=== PATIENT | male | born 1960 | race Caucasian/White ===

== ENCOUNTER 2019-01-28 11:34 | Emergency (ER) | payer OTHER ==
[~2019-01-28] VITALS: Ht 177.8 cm; Wt 92.0 kg
[~2019-01-28 11:34] MED LIST: ENAL20TA PO; METF850T13 PO; SIMV20TA2 PO; TERA2CAP3 PO
[2019-01-28 11:37] VITALS: BP 166/87; PULSE 88; RESP 18; Ht 177.8 cm; Wt 92.0 kg
[2019-01-28] MEDS ORDERED: IBUPROFEN 200 MG TAB PO ONE (13:00)
--- NOTE | 2019-01-28 13:54 | ERD ---
ER Documentation Chief Complaint Chief Complaint LEFT SHOULDER PAIN S/P FALL, LANDED ON YESTERDAY. LIMITED ROM. HPI 58-year-old male presents with complaint of left shoulder pain and left hip pain status post fall. States that he he tripped yesterday while walking. States that he has some limited range of motion of his shoulder but denies any weakness or numbness. Denies any preceding dizziness, lightheadedness, chest pain, syncope. Denies hitting his head. Denies any headaches or neck pain. Denies any back pain. ROS All systems reviewed and are negative except as per history of present illness. Medications Home Meds Active Scripts Hydrocodone/Acetaminophen (Kerens 5-325 Tablet) 1 Each Tablet, 1 TAB PO Q6H PRN for PAIN, #15 TAB Prov:ROBE DESAI 01/28/19 Reported Medications Terazosin Hcl* (Terazosin Hcl*) 2 Mg Capsule, 6 MG PO PM, CAP 02/07/14 Enalapril Maleate* (Enalapril Maleate*) 20 Mg Tablet, 20 MG PO BID, TAB 02/07/14 Simvastatin (Simvastatin) 20 Mg Tablet, 20 MG PO HS, TAB 02/07/14 Metformin Hcl* (Metformin Hcl*) 850 Mg Tablet, 850 MG PO BID, TAB 02/07/14 Allergies Allergies: Coded Allergies: No Known Allergy (Unverified , 01/28/19) PMhx/Soc History of Surgery: Yes (BACK SURGERY ) Anesthesia Reaction: No Hx Neurological Disorder: No Hx Respiratory Disorders: No Hx Cardiac Disorders: Yes (HTN , HIGH CHOLESTEROL ) Hx Psychiatric Problems: No Hx Miscellaneous Medical Probl: Yes (DM ) Hx Alcohol Use: No Hx Substance Use: No Hx Tobacco Use: No FmHx Family History: No diabetes, No coronary disease, No other Physical Exam Vitals Vital Signs Date Temp Pulse Resp B/P (MAP) Pulse Ox O2 O2 Flow FiO2 Time Delivery Rate 01/28/19 97.9 88 18 166/87 98 11:37 (113) Physical Exam Const: No acute distress Head: Atraumatic Eyes: Normal Conjunctiva ENT: Normal External Ears, Nose and Mouth. Neck: Full range of motion. No meningismus. Resp: Clear to auscultation bilaterally Cardio: Regular rate and rhythm, no murmurs Abd: Soft, non tender, non distended. Normal bowel sounds Skin: No petechiae or rashes Back: No midline or flank tenderness Ext: No cyanosis, or edema Neur: Awake and alert Psych: Normal Mood and Affect Upper Extremity - bilateral: Skin: [No laceration, or evidence of external trauma] Compartments: [Soft] Motor: [Full active range of motion shoulder/elb ow/wrist/hand] Sensation: [Intact shoulder/pinky/middle finger/thumb web space] Bones: [Nontender humerus/elbow/forearm/wrist/hand] Snuffbox: [Nontender] Joints: [No effusion] Pulses/Perfusion: [2+ radial, Capillary refill < 2 seconds] Lower Extremity - bilateral: Skin: No laceration Compartments: Soft Motor: Full active range of motion hip/knee/ankle/foot Sensation: Intact to light touch FDWS/MF/LF/P surfaces. Bones: Nontender femur and pelvis bilaterally. Joints: No effusion or laxity Pulses/Perfusion: 2+ DP, Capillary refill < 2 seconds Results 24 hrs Current Medications Medications Dose Sig/Cynthia Start Time Status Last (Trade) Ordered Route PRN Stop Time Admin Dose Reason Admin Ibuprofen 400 mg ONCE ONCE 01/28/19 DC 01/28/19 (Motrin) PO 13:00 12:59 01/28/19 13:03 Procedures/MDM DIAGNOSTIC IMAGING REPORT Patient: CHARLY FORRESTER : 1960 Age: 58 Sex: M MR #: [id number] DOS: 01/28/19 1247 Ordering MD: ROBE DESAI Location: [facility] Room/Bed: PROCEDURE: XR Hip. CLINICAL INDICATION: trauma, pain TECHNIQUE: AP and frog lateral views of the left hip were performed. COMPARISON: None. FINDINGS: There is normal mineralization and alignment. No displaced fracture identified. Marginal osteophyte formation in the left hip without significant cartilage space narrowing. Left SI joint demonstrates mild hypertrophic change. Degenerative change in the visualized lower lumbar spine. Imaged sacrum is obscured by overlying bowel gas and stool. Vascular calcifications IMPRESSION: 1. No displaced fracture identified. CT may be obtained if there is persistent concern for fracture. 2. Degenerative change of the visualized lower lumbar spine, and mild left hip osteoarthritis. 3. Vascular calcifications. RPTAT: RR Physician Tuan Date Time Electronically viewed and signed by Physician Tuan on 01/28/2019 13:43 RG/ CC: ROBE DESAI [id number] DIAGNOSTIC IMAGING REPORT Patient: CHARLY FORRESTER : 1960 Age: 58 Sex: M MR #: [id number] DOS: 01/28/19 1247 Ordering MD: ROBE DESAI Location: [facility] Room/Bed: PROCEDURE: Left Shoulder series CLINICAL INDICATION: Left shoulder pain status post trauma TECHNIQUE: Two frontal and left transscapular views of the left shoulder. COMPARISON: None available FINDINGS: The osseous structures are intact with no evidence of fracture or dislocation. The acromioclavicular and coracoclavicular regions are remarkable for severe left acromioclavicular osteoarthropathy. The left lung apex is clear. The soft tissues are normal in appearance. IMPRESSION: 1. No acute fractures or dislocations. 2. Severe left acromioclavicular osteoarthropathy RPTAT: HDC .Caitlin Diane MD, MD Date Time Electronically viewed and signed by .Caitlin Diane MD, on 01/28/2019 13:27 .C/ CC: ROBE DESAI [id number] MDM: X-rays were taking of the left hip and left shoulder and all results within normal limits. Patient most likely has contusion versus strain of the shoulder. I have low suspicion for neurovascular compromise, compartment syndrome, fracture, osteomyelitis, septic joint, DVT, or other emergent condition. Patient placed in shoulder sling. Patient given Rx for pain meds. At this time, patient is stable for discharge and outpatient management. I have instructed the patient to follow-up with his/her primary care physician in 1-2 days. I have discussed with the patient the possibility of needing to see a specialist for further workup and imaging studies if symptoms persist. I have instructed the patient to promptly return to the ER for any new or worsening symptoms including but not limited to increased pain, fever, nausea, vomiting, weakness or LOC. The patient and/or family expressed understanding of and agreement with this plan. All questions were answered. Home care instructions were provided. DISCLAIMER: Inadvertent spelling and grammatical errors are likely due to EHR/dictation software use and do not reflect on the overall quality of patient care. Also, please note that the electronic time recorded on this note does not necessarily reflect the actual time of the patient encounter. Departure Diagnosis: Primary Impression: Shoulder injury Additional Impressions: Shoulder pain Hip pain Hip injury Condition: Stable GISELLEROBE Jan 28, 2019 13:54
[2019-01-28] MEDS ORDERED: HYDR-4011 PO (13:56)
== END 2019-01-28 14:28 | disposition home or self-care (01) ==
LOC: FTE 11:34
DX: S49.92XA Unspecified injury of left shoulder and upper arm, initial encounter (principal); E11.9 Type 2 diabetes mellitus without complications; I10 Essential (primary) hypertension; S79.912A Unspecified injury of left hip, initial encounter; W01.0XXA Fall on same level from slipping, tripping and stumbling without subsequent striking against object, initial encounter; Y92.9 Unspecified place or not applicable; Z79.84 Long term (current) use of oral hypoglycemic drugs
CPT/HCPCS: 73030; 73510; 73550; Z7502; Z7610